=== PATIENT | male | born 1945 | race Caucasian/White ===

== ENCOUNTER 2017-08-01 20:56 | Emergency (ER) | payer OTHER ==
[~2017-08-01] VITALS: Ht 190.5 cm; Wt 108.0 kg
--- NOTE | ~2017-08-01 | EKG ---
[address] [address] [place] [address] ELECTROCARDIOGRAM REPORT Name: KRYSTIAN KNIGHT [id number] Admission: 08/01/17 Attend Phys: Discharge: 08/02/17 Date of : 47 Report #: [id number] THIS REPORT FOR: //name// [facility] ED Test Date: 2017-08-01 Test Time: 21:50:51 Pat Name: KRYSTIAN KNIGHT Department: Room: Gender: M Shake Cutter: [id number] : 1945 Requested By: Kwaku Ortiz Order Number: [id number] MD: Angus Montez Measurements Intervals [place] Rate: 57 P: 51 MS: 223 QRS: 6 QRSD: 103 T: 59 QT: 441 QTc: 430 Interpretive Statements Sinus rhythm Prolonged MS interval Nonspecific ST segment abnormality Compared to ECG 07/15/2014 05:08:09 sinus rhythm has replaced atrial fibrillation Electronically Signed On 08-02-2017 7:28:34 CDT by Angus Montez [email or web address] <ELECTRONICALLY SIGNED> By: Angus Montez MD, [facility] 08/02/17 0728 49 49 Angus Montez MD, FACC /EPI
[~2017-08-01 20:56] MED LIST: ARICEPT 5 MG TAB5 MG PO; ARICEPT10 M1 PO; BYSTOLIC 5 MG5 M1 PO; FISH OIL + D31 EACH PO; HYDROCHLOROTHIA25 M2; IBUPROFEN 200200 M1 PO; JUICE PLUS PO; KLOR-CON 1010 MEQ PO; LIPITOR 10 MG10 M1 PO; LISINOPRIL-HCT1 EAC1 PO; NORCO 5-325 TA1 EACH PO; PRINIVIL20 MG PO; TRIAMCINOLONE CREAM TOP; XARELTO10 M1 PO; XARELTO20 MG PO
[2017-08-01] MEDS ORDERED: NAMENDA 10 MG T10 MG PO (22:06)
[2017-08-01] MEDS ORDERED: METFORMIN HCL500 MG PO (22:07)
[2017-08-01 22:08] LABS: ABSOLUTE NEUTROPHILS 9.5 thou/uL (1.4-8.2); BASOPHILS 0.3 % (0.0-2.0); EOSINOPHILS 1.3 % (0.0-3.0); HEMATOCRIT 40.2 % (42.0-52.0); HEMOGLOBIN 13.1 gm/dL (14.0-18.0); LYMPHOCYTES 11.7 % (24.0-44.0); MCH 26.6 pg (26.0-34.0); MCHC 32.7 g/dL (28.0-37.0); MCV 81.4 fL (80.0-100.0); MONOCYTES 6.9 % (1.0-8.0); PLATELET COUNT 192 thou/uL (150-400); POLYS 79.8 % (36.0-66.0); RBC 4.94 mil/uL (4.50-6.00); RDW 14.3 % (10.5-14.5); WBC 11.9 thou/uL (4.0-11.0)
[2017-08-01 22:18] LABS: MANUAL DIFF NO
[2017-08-01 22:27] LABS: ANION GAP 15 mmol/L (7-16); BUN 17 mg/dL (7-18); CALCIUM 9.3 mg/dL (8.5-10.1); CHLORIDE 104 mmol/L (98-107); CO2 22 mmol/L (21-32); CREATININE 1.4 mg/dL (0.7-1.3); GLUCOSE 141 mg/dL (74-106); POTASSIUM 3.2 mmol/L (3.5-5.1); SODIUM 141 mmol/L (136-145)
[2017-08-01 22:32] LABS: ALBUMIN 4.4 g/dL (3.4-5.0); ALKALINE PHOSPHATASE 83 U/L (46-116); SGOT 22 U/L (15-37); SGPT 23 U/L (30-65); TOTAL BILIRUBIN 1.4 mg/dL (<0.1-1.0); TOTAL PROTEIN 7.2 g/dL (6.4-8.2); TROPONIN-I < 0.04 ng/mL (<0.04-0.07)
[2017-08-01] MEDS ORDERED: NORCO 5-325 TA1 EACH PO (23:47)
[2017-08-01] MEDS ORDERED: FLOMAX0.4 MG PO (23:47)
[2017-08-01] MEDS ORDERED: ZOFRAN ODT8 MG PO (23:47)
[2017-08-01 23:48] LABS: URINE BILIRUBIN NEGATIVE (Negative); URINE BLOOD 3+ (Negative); URINE COLOR YELLOW; URINE GLUCOSE-RANDOM* NEGATIVE (Negative); URINE KETONES TRACE (Negative); URINE LEUKOCYTES-REFLEX NEGATIVE (Negative); URINE PROTEIN (DIPSTICK) NEGATIVE (Negative); URINE UROBILINOGEN 0.2 E.U./dl (0.2-1.0)
[2017-08-01 23:54] LABS: CASTS None Seen /LPF (None Seen); SQUAMOUS None Seen /LPF (0-3)
[2017-08-01 23:55] LABS: CRYSTALS None Seen /LPF (None Seen); URINE RBC 0-2 Rare /HPF (0-2); URINE WBC-REFLEX None Seen /HPF (0-5)
[2017-08-02 00:55] VITALS: BP 178/75
== END 2017-08-02 00:55 | disposition home or self-care (01) ==
LOC: ER 20:56
PROVIDERS: Emergency Medicine
DX: N20.0 Calculus of kidney (principal); N18.1 Chronic kidney disease, stage 1; F03.90 Unspecified dementia, unspecified severity, without behavioral disturbance, psychotic disturbance, mood disturbance, and anxiety; D72.829 Elevated white blood cell count, unspecified; I48.91 Unspecified atrial fibrillation; Z96.652 Presence of left artificial knee joint; Z85.038 Personal history of other malignant neoplasm of large intestine; Z79.01 Long term (current) use of anticoagulants